=== PATIENT | female | born 1960 | race African-American/Black ===

== ENCOUNTER 2016-12-05 09:16 | Emergency (ER) | payer SELFPAY ==
[2016-12-05 09:40] VITALS: BP 133/78; PULSE 75; TEMP 98; BMI 26.5
--- NOTE | 2016-12-05 09:42 | PDOC ---
History of Present Illness - General Chief Complaint: Urinary Problem Stated Complaint: DISCOMFORT Time Seen by Provider: 12/05/16 09:31 History Source: Patient Exam Limitations: No Limitations - History of Present Illness Initial Comments: CHIEF COMPLAINT: 56 y/o afebrile female with no significant PMH c/o urinary frequency and abnormal vaginal discharge for the past 1 week. HISTORY OF PRESENT ILLNESS: The patient states she has had 1 sexual partner for the past 25 years and is not concerned for STDs. She states her discharge is greenish/brownish with foul odor. She tried using OTC monistat with no relief. She denies f/c, n/v/d, dysuria, hematuria, abd pain, back pain, vaginal itching. Vital signs on arrival are within normal limits. REVIEW OF SYSTEMS: GENERAL/CONSTITUTIONAL: No fever/chills. No weakness. No weight change. HEAD, EYES, EARS, NOSE AND THROAT: No change in vision. No ear pain or discharge. No sore throat. CARDIOVASCULAR: No chest pain or shortness of breath. RESPIRATORY: No cough, wheezing, or hemoptysis. GASTROINTESTINAL: No abd pain, nausea, vomiting, diarrhea. GENITOURINARY: +urinary frequency. No dysuria or hematuria. VAGINA: +foul smelling greenish discharge. MUSCULOSKELETAL: No joint or muscle swelling or pain. No neck or back pain. SKIN: No rash or easy bruising. NEUROLOGIC: No headache, vertigo, loss of consciousness, or loss of sensation. PHYSICAL EXAM: GENERAL: The patient is awake, alert, and fully oriented, in no acute distress. HEAD: Normal with no signs of trauma. ABDOMEN: Soft, non-distended, non-tender even to deep palpation, no hepatomegaly or splenomegaly, no masses. VAGINAL/SPECULUM: watery, yellow-brown, foul smelling discharge in the vaginal canal, consistent with BV. EXTREMITIES: Normal range of motion, no edema. NEUROLOGICAL: Normal speech, normal gait. CN II-XII grossly intact. PSYCH: Normal mood, normal affect. SKIN: Warm, dry, normal turgor, no rashes or lesions noted. Past History - Past Medical History Allergies/Adverse Reactions: Allergies Allergy/AdvReac Type Severity Reaction Status Date / Time No Known Allergies Allergy Verified 12/05/16 09:27 Home Medications: Ambulatory Orders Cephalexin Monohydrate [Keflex -] 500 mg PO BID #10 capsule 12/05/16 Metronidazole 0.75% Vag. Gel [Metrogel 0.75% *Vaginal Gel* -] 1 applic VG BID # 10 tube 12/05/16 Other medical history: PATIENT DENIES MEDICAL HISTORY - Psycho/Social/Smoking Cessation Hx Suicidal Ideation: No Smoking History: Never smoked Hx Alcohol Use: No Drug/Substance Use Hx: No *Physical Exam - Vital Signs Last Vital Signs Temp Pulse Resp BP Pulse Ox 98.0 F 75 18 133/78 96 12/05/16 09:24 12/05/16 09:24 12/05/16 09:24 12/05/16 09:24 12/05/16 09:24 Medical Decision Making - Medical Decision Making A/P: 56 y/o female with urinary frequency and abnormal vaginal discharge. Plan is as follows: 1. UA/culture 2. vaginal cultures UA with 3+ leuks. Will treat sxs with keflex. Vaginal exam reveals most likely BV. Will send rx for metro gel. Will also send vaginal culture and GC/chlamydia. Pt instructed no to drink alcohol while taking metro gel, follow up with her PCP within 1 week and return to the ER with any worsening or concerning symptoms. The patient verbalizes understanding of all instructions, has no further questions and is awaiting discharge. *DC/Admit/Observation/Transfer Diagnosis at time of Disposition: Bacterial vaginosis UTI (urinary tract infection) Qualifiers: Urinary tract infection type: acute cystitis Hematuria presence: without hematuria Qualified Code(s): N30.00 - Acute cystitis without hematuria - Discharge Dispostion Disposition: HOME Condition at time of disposition: Good - Prescriptions Prescriptions: Cephalexin Monohydrate [Keflex -] 500 mg PO BID #10 capsule Metronidazole 0.75% Vag. Gel [Metrogel 0.75% *Vaginal Gel* -] 1 applic VG BID # 10 tube - Patient Instructions Printed Discharge Instructions: DI for Urinary Tract Infection (UTI), DI for Bacterial Vaginosis Additional Instructions: Discharge Instructions: -Take medications as prescribed -Do not drink alcohol while using the vaginal applicators -Follow up with your doctor within 1 week -Return to the ER with any worsening or concerning symptoms
[2016-12-05 09:55] LABS: URINE APPEARANCE CLEAR; URINE BILIRUBIN NEGATIVE (NEGATIVE); URINE BLOOD NEGATIVE (NEGATIVE); URINE COLOR STRAW; URINE GLUCOSE (UA) NEGATIVE (NEGATIVE); URINE KETONE NEGATIVE (NEGATIVE); URINE NITRITE NEGATIVE (NEGATIVE); URINE PROTEIN NEGATIVE (NEGATIVE); URINE UROBILINOGEN NEGATIVE E.U./dl (0.2-1.0)
[2016-12-05 09:57] LABS: URINE LEUK ESTERASE 3+ (NEGATIVE)
[2016-12-05 10:01] LABS: URINE RBC 2 /hpf (0-3); URINE WBC 9 /hpf (3-5)
== END 2016-12-05 10:24 | disposition home or self-care (01) ==
LOC: JERFT 09:16 → JER 09:16 → JERFT 10:24
DX: N76.0 Acute vaginitis (principal); B96.89 Other specified bacterial agents as the cause of diseases classified elsewhere; N30.00 Acute cystitis without hematuria
CPT/HCPCS: 36415; 81003; 81015; 87070; 87077; 87086; 87205; 87491; 87591; 99281-25

== ENCOUNTER 2018-01-23 10:33 | Emergency (ER) | payer SELFPAY ==
[2018-01-23 10:45] VITALS: BP 108/64; PULSE 64; TEMP 98; BMI 30.2
--- NOTE | 2018-01-23 12:11 | PDOC ---
History of Present Illness - General Chief Complaint: Vaginal Sxs Stated Complaint: SICK Time Seen by Provider: 01/23/18 11:49 History Source: Patient Exam Limitations: No Limitations - History of Present Illness Travel History: No Initial Comments: 01/23/18 12:06 57 yr female with c/o of vaginal discharge and urinary urgency for one week. Pt denies abd pain or bleeding. Pt had same symptoms last year. Past History - Past Medical History Allergies/Adverse Reactions: Allergies Allergy/AdvReac Type Severity Reaction Status Date / Time No Known Allergies Allergy Verified 01/23/18 10:43 Home Medications: Ambulatory Orders metroNIDAZOLE 0.75% VAG. GEL [Metrogel 0.75% *Vaginal Gel* -] 1 applic VG HS #5 tube 01/23/18 COPD: No - Suicide/Smoking/Psychosocial Hx Smoking History: Never smoked Have you smoked in the past 12 months: No Information on smoking cessation initiated: No Hx Alcohol Use: No Drug/Substance Use Hx: No Substance Use Type: None *Physical Exam - Vital Signs Last Vital Signs Temp Pulse Resp BP Pulse Ox 98.0 F 64 18 108/64 100 01/23/18 10:43 01/23/18 10:43 01/23/18 10:43 01/23/18 10:43 01/23/18 10:43 - Physical Exam General Appearance: Yes: Nourished, Appropriately Dressed HEENT: positive: EOMI, LILI Female Pelvic Exam: positive: normal external exam, discharge (thin watery brownish villatoro, green discharge , red vulva noted ). negative: CMT, adnexal tenderness Gastrointestinal/Abdominal: positive: Normal Bowel Sounds, Soft. 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 GEL [Metrogel 0.75% *Vaginal Gel* -] 1 applic VG HS #5 tube - Referrals Referrals: Judi Yang MD [Staff Physician] - - Patient Instructions Additional Instructions: follow with your furnace clerk or avoid soap in the vaginal area, just water to clean avoid sexual activity until symptoms have resolved use the medication as directed - Post Discharge Activity
[2018-01-23 12:21] LABS: HCG,QUALITATIVE URINE Negative
[2018-01-23 12:22] LABS: URINE APPEARANCE CLOUDY; URINE BILIRUBIN NEGATIVE (<2.0 mg/dL); URINE BLOOD 2+ (NEGATIVE); URINE COLOR LTYELLOW; URINE GLUCOSE (UA) NEGATIVE (NEGATIVE); URINE KETONE NEGATIVE (NEGATIVE); URINE NITRITE NEGATIVE (NEGATIVE); URINE PROTEIN NEGATIVE (NEGATIVE); URINE UROBILINOGEN NEGATIVE mg/dL (0.2-1.0)
[2018-01-23 12:32] LABS: URINE LEUK ESTERASE 3+ (NEGATIVE)
[2018-01-23 12:34] LABS: EPI CELLS MANY /HPF (FEW); URINE BACTERIA RARE /hpf (NONE SEEN); URINE MUCUS RARE
== END 2018-01-23 12:36 | disposition home or self-care (01) ==
LOC: JERFT 10:33
DX: N76.0 Acute vaginitis (principal); B96.89 Other specified bacterial agents as the cause of diseases classified elsewhere
CPT/HCPCS: 36415; 81003; 81015; 84703; 87070; 87086; 87205; 87491; 87591; 99281-25

== ENCOUNTER 2019-08-24 12:41 | Inpatient (IN) | payer OTHER ==
[2019-08-24] MEDS ORDERED: ACETAMINOPHEN 500 MG TABLET (FP) PO ONE (14:03)
--- NOTE | 2019-08-24 14:04 | PDOC ---
History of Present Illness - General Chief Complaint: Pain Stated Complaint: PERSONAL Time Seen by Provider: 08/24/19 13:44 Past History - Past Medical History Allergies/Adverse Reactions: Allergies Allergy/AdvReac Type Severity Reaction Status Date / Time No Known Allergies Allergy Verified 08/24/19 12:45 Home Medications: Ambulatory Orders NK [No Known Home Medication] 08/24/19 COPD: No - Psycho Social/Smoking Cessation Hx Smoking History: Never smoked Have you smoked in the past 12 months: No Information on smoking cessation initiated: No Hx Alcohol Use: No Drug/Substance Use Hx: No Substance Use Type: None *Physical Exam - Vital Signs Last Vital Signs Temp Pulse Resp BP Pulse Ox 98 F 88 18 134/78 98 08/24/19 12:42 08/24/19 12:42 08/24/19 12:42 08/24/19 12:42 08/24/19 12:42 ED Treatment Course - LABORATORY CBC & Chemistry Diagram: 08/24/19 14:10 08/24/19 14:10 Medical Decision Making - Medical Decision Making 08/24/19 14:23 HPI: 59yo F no PMH presents from home with 6 days NB watery diarrhea 3-4x/day and 4 days of circumferential mid-back pain wrapping around to upper abdomen, worse with movement, stabbing type, only slight twinges intermittently at rest, better with ibuprofen, causing her to move slower. Pt is eating but a little less due to decreased appetite. Pt is drinking lots of water. Endorses slight lightheadedness today, denies vertigo. Endorses feeling bloated x6 days. Endorses chills, denies fever. Denies new or bizarre foods, sick contacts, travel. Endorses amoxicillin course for tooth abscess, started on 08/13/19. Denies chance of ; no menopausal sx but no period x5mo. Denies trauma, fall, heavy lifting, fever, fatigue, headache, numbness/tingling, weakness, vision changes, shortness of breath, cough, chest pain, palpitations, leg swelling, blood in stool, constipation, nausea, vomiting, dysuria, hematuria, frequency/urgency, vaginal discharge, vaginal bleeding, pelvic pain, confusion. Hx 4 c/s, no other surgeries. Denies alcohol, smoking, drugs. PCP - Alessandro Dumas ROS: Constitutional: Positive for chills. Negative for fever, fatigue, diaphoresis. HENT: Negative for sore throat, rhinorrhea, congestion. Eyes: Negative for visual disturbance. Respiratory: Negative for shortness of breath, cough, and wheezing. Cardiovascular: Negative for chest pain, palpitations, and leg swelling. Gastrointestinal: Positive for upper abdominal pain and diarrhea. Negative for blood in stool, constipation, nausea, and vomiting. Genitourinary: Negative for dysuria, flank pain, and hematuria. Musculoskeletal: Positive for b/l back pain. Negative for myalgias, and neck pain. Skin: Negative for rash. Neurological: Positive for light-headedness. Negative for vertigo, syncope, weakness, numbness and headaches. Psychiatric/Behavioral: Negative for behavioral problems and confusion. PE: Gen: Alert, NAD, comfortable-appearing. HEENT: PERRL, EOMI, MMM, NCAT. No conjunctival pallor. Sclera are non-icteric. CV: Regular rate and rhythm. No murmurs, rubs, or gallops. PULM: No resp distress. CTAB, no wheezes, rales, or rhonchi. ABD: soft, ND, no rebound tenderness or guarding, no CVA tenderness. +mild TTP diffuse upper abdomen wrapping around to back. BACK: +ttp b/l back musculature diffusely wrapping around sides to abdomen. No TTP of c/t/l-spine. No step-offs or deformities. MSK: No bony deformities. 2+ pulses in all extremities. NEURO: AAOx3. PERRL. CN 2-12 intact. 5/5 strength in all extremities. Sensation to light touch intact in all extremities. EXTREMITIES: No cyanosis. No clubbing. No edema. No calf tenderness. PSYCH: Normal mood and thought pattern. SKIN: Warm and dry. Normal capillary refill. No rashes. No jaundice. MDM: 59yo F no PMH presents from home with 6 days NB watery diarrhea 3-4x/day and 4 days of circumferential mid-back pain wrapping around to upper abdomen, worse with movement, better with ibuprofen, causing her to move slower. Hemodynamically stable, afebrile, +mild TTP circumferentially around upper abdomen and mid/lower back, extending up b/l back musculature, sparing spine, neurologically intact. Most consistent with MSK pain and viral gastroenteritis. Also consider metabolic derangement, anemia, . No spine pain/tenderness or trauma or neuro deficit concerning for spine pathology. No vaginal or urinary sx or lower abdominal pain concerning for pathology. Lower concern for emergent GI pathology such as pancreatitis, colitis, diverticulitis - obtain labs; manage pain and reassess and consider imaging. -CBC,CMP,Mg,Phos,Lipase,UA/UC/Upreg -Pain management: Tylenol before Upreg (if neg, toradol and robaxin) -Pt orally hydrating sufficiently. No need for IVF at this time. -If pain remains after pain management or lab abnormalities, consider imaging for GI or renal pathology -Pending CBC, consider c diff -Dispo: pending w/u 08/24/19 15:22 Upreg negative - toradol and robaxin. 08/24/19 15:40 Labs reviewed. No concerning findings. Pain persists, remains tender. -CTAP w/IV contrast 08/24/19 18:54 CTAP: extensive diverticulosis with acute diverticulitis at junction of distal descending and proximal sigmoid colon w/o gross evidence of abscess. Questionable couple of tiny extraluminal air pockets. -Rianna Nair -NPO Admitted - signed out to Dr Abdullahi Discharge - Discharge Information Problems reviewed: Yes Clinical Impression/Diagnosis: Diverticulitis Condition: Stable - Admission Yes - Follow up/Referral Referrals: Alessandro Dumas MD [Primary Care Provider] - - Patient Discharge Instructions - Post Discharge Activity
[2019-08-24] MEDS ORDERED: ACETAMINOPHEN 325 MG TABLET (FP) ONE (14:17)
[2019-08-24 14:44] LABS: PH,URINE 5.5 (5.0-8.0); URINE APPEARANCE CLOUDY; URINE BILIRUBIN NEGATIVE (NEGATIVE); URINE COLOR YELLOW; URINE GLUCOSE (UA) NEGATIVE (NEGATIVE); URINE KETONE NEGATIVE (NEGATIVE); URINE LEUK ESTERASE NEGATIVE (NEGATIVE); URINE NITRITE NEGATIVE (NEGATIVE); URINE PROTEIN NEGATIVE (NEGATIVE); URINE UROBILINOGEN 0.2 mg/dL (0.2-1.0)
[2019-08-24 14:46] LABS: BASO % 0.9 % (0-2.0); EOS % 0.6 % (0-4.5); HEMOGLOBIN 11.6 GM/dL (10.7-15.3); LYMPH % 19.8 % (8-40); MCHC 34.1 g/dl (32.0-36.0); MEAN CELL VOLUME 87.9 fl (80-96); MEAN PLT VOLUME 8.7 fl (7.5-11.1); MONO % 7.3 % (3.8-10.2); NEUT % 71.4 % (42.8-82.8); PLATELET COUNT 398 K/MM3 (134-434); RBC 3.87 M/mm3 (3.60-5.2); RDW 13.6 % (11.6-15.6); WHITE BLOOD COUNT 8.8 K/mm3 (4.0-10.0)
[2019-08-24] MEDS ORDERED: METHOCARBAMOL 500 MG TABLET PO ONE (15:00)
[2019-08-24] MEDS ORDERED: KETOROLAC TROMETHAMINE 30 MG/1 ML VIAL IVPUSH ONE (15:00)
[2019-08-24] MEDS ORDERED: METHOCARBAMOL 500 MG TABLET ONE (15:04)
[2019-08-24] MEDS ORDERED: KETOROLAC TROMETHAMINE 30 MG/1 ML VIAL ONE (15:04)
[2019-08-24 15:20] LABS: ALBUMIN 3.6 g/dl (3.4-5.0); BILIRUBIN,TOTAL 0.6 mg/dL (0.2-1); BLOOD UREA NITROGEN 9.8 mg/dL (7-18); CALCIUM 9.4 mg/dL (8.5-10.1); CREATININE 0.7 mg/dL (0.55-1.3); PHOSPHOROUS 4.1 mg/dL (2.5-4.9); POTASSIUM 4.4 mmol/L (3.5-5.1); TOT PROT 7.6 g/dl (6.4-8.2)
[2019-08-24 15:49] LABS: LIPASE < 10 U/L (73-393); MAGNESIUM 2.5 mg/dL (1.8-2.4)
--- NOTE | 2019-08-24 15:51 | PDOC ---
Attending Attestation - Resident Resident Name: Taryn Onofre - ED Attending Attestation I have performed the following: I have examined & evaluated the patient, The case was reviewed & discussed with the resident, I agree w/resident's findings & plan - HPI HPI: 08/24/19 15:48 Healthy and high functioning 59-year-old female presents with diarrhea and abdominal pain. Patient was in her usual state of good health, had dental infection treated with amoxicillin course that was completed about 1 week ago, since then has had up to 6-7 episodes per day of nonbloody watery/loose diarrhea , initially painless and then accompanied starting 4 days ago by a generalized bandlike abdominal pain that is constant, worsening in severity. Patient saw her PCP, no reported work-up, presents now for persistent symptoms. No history of GI infections, never had endoscopy or colonoscopy, no recent travel or sick contacts. No nausea or vomiting. No chills or fever. - Physicial Exam PE: 08/24/19 15:49 Vital signs normal Seated comfortably in the chair in no acute distress No jaundice or pallor, moist mucosa Heart is regular, lungs are clear Abdomen is soft/nondistended. Diffusely tender greatest in the lower quadrants bilaterally with guarding, no rebound. No CVA tenderness. - Medical Decision Making 08/24/19 15:49 Patient is a 59-year-old female with no sniffing past medical history who presents with abdominal pain and diarrhea in the setting of amoxicillin course, localizing findings on abdominal examination. Presentation could be consistent with colitis ( consider C. difficile on differential given recent antibiotics), possible diverticulitis. 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 Labs, urinalysis IV fluids, pain control CT of the abdomen and pelvis Disposition accordingly
[2019-08-24] MEDS ORDERED: SODIUM CHLORIDE 0.9% 500 ML INFUS.BAG IV ONE (18:48)
--- NOTE | 2019-08-24 21:09 | HP ---
Admitting History and Physical - Primary Care Physician PCP: Alexis Abdullahi - Admission History of Present Illness: Healthy and high functioning 59-year-old female presents with diarrhea and abdominal pain. Patient was in her usual state of good health, had dental infection treated with amoxicillin course that was completed about 1 week ago, since then has had up to 6-7 episodes per day of nonbloody watery/loose diarrhea , initially painless and then accompanied starting 4 days ago by a generalized bandlike abdominal pain that is constant, worsening in severity. Patient saw her PCP, no reported work-up, presents now for persistent symptoms. No history of GI infections, never had endoscopy or colonoscopy, no recent travel or sick contacts. No nausea or vomiting. No chills or fever. - Smoking History Smoking history: Never smoked Have you smoked in the past 12 months: No - Alcohol/Substance Use Hx Alcohol Use: No Home Medications - Allergies Allergies/Adverse Reactions: Allergies Allergy/AdvReac Type Severity Reaction Status Date / Time No Known Allergies Allergy Verified 08/24/19 12:45 - Home Medications Home Medications: Ambulatory Orders NK [No Known Home Medication] 08/24/19 Review of Systems - Review of Systems Gastrointestinal: reports: Abdominal Pain, Diarrhea Physical Examination Vital Signs: Vital Signs Temperature 98.2 F 08/24/19 19:19 Pulse Rate 69 08/24/19 19:19 Respiratory Rate 15 08/24/19 19:19 Blood Pressure 110/68 08/24/19 19:19 O2 Sat by Pulse Oximetry (%) 100 08/24/19 19:19 Constitutional: Yes: Calm HENT: Yes: Atraumatic Neck: Yes: Supple Cardiovascular: Yes: Regular Rate and Rhythm Respiratory: Yes: CTA Bilaterally Gastrointestinal: Yes: Normal Bowel Sounds Extremities: Yes: WNL Edema: No Peripheral Pulses WNL: Yes Neurological: Yes: Alert, Oriented Labs: CBC, BMP 08/24/19 14:10 08/24/19 14:10 Imaging - Results Cat Scan: Report Reviewed Problem List - Problems (1) Diverticulitis Assessment/Plan: npo ivf iv abx gi/surgery and id consult Code(s): K57.92 - DVTRCLI OF INTEST, PART UNSP, W/O PERF OR ABSCESS W/O BLEED Assessment/Plan Laboratory Tests 08/24/19 08/24/19 08/24/19 14:10 14:10 14:10 WBC 8.8 RBC 3.87 Hgb 11.6 Hct 34.0 MCV 87.9 MCH 30.0 MCHC 34.1 RDW 13.6 Plt Count 398 MPV 8.7 Absolute Neuts (auto) 6.3 Neutrophils % 71.4 Lymphocytes % 19.8 Monocytes % 7.3 Eosinophils % 0.6 Basophils % 0.9 Nucleated RBC % 0 Sodium 138 Potassium 4.4 Chloride 104 Carbon Dioxide 28 Anion Gap 6 L BUN 9.8 Creatinine 0.7 Est GFR (CKD-EPI)AfAm 111.47 Est GFR (CKD-EPI)NonAf 96.18 Random Glucose 78 Calcium 9.4 Phosphorus 4.1 Magnesium 2.5 H Total Bilirubin 0.6 AST 24 ALT 21 Alkaline Phosphatase 83 Total Protein 7.6 Albumin 3.6 Lipase < 10 L Urine Color Urine Appearance Urine pH Ur Specific [place] Urine Protein Urine Glucose (UA) Urine Ketones Urine Blood Urine Nitrite Urine Bilirubin Urine Urobilinogen Ur Leukocyte Esterase Urine HCG, Qual 08/24/19 08/24/19 14:15 14:15 WBC RBC Hgb Hct MCV MCH MCHC RDW Plt Count MPV Absolute Neuts (auto) Neutrophils % Lymphocytes % Monocytes % Eosinophils % Basophils % Nucleated RBC % Sodium Potassium Chloride Carbon Dioxide Anion Gap BUN Creatinine Est GFR (CKD-EPI)AfAm Est GFR (CKD-EPI)NonAf Random Glucose Calcium Phosphorus Magnesium Total Bilirubin AST ALT Alkaline Phosphatase Total Protein Albumin Lipase Urine Color Yellow Urine Appearance Cloudy Urine pH 5.5 Ur Specific [place] 1.011 Urine Protein Negative Urine Glucose (UA) Negative Urine Ketones Negative Urine Blood Negative Urine Nitrite Negative Urine Bilirubin Negative Urine Urobilinogen 0.2 Ur Leukocyte Esterase Negative Urine HCG, Qual Negative Active Medications Generic Name Dose Route Start Last Admin Trade Name Freq PRN Reason Stop Dose Admin Sodium Chloride 1,000 mls @ 100 mls/hr 08/24/19 21:15 08/25/19 08:21 Normal Saline - IV 100 mls/hr ASDIR CHARLY Administration Morphine Sulfate 2 mg 08/24/19 21:12 Morphine Sulfate IVPUSH Q4H PRN PAIN LEVEL 4 - 6
[2019-08-24] MEDS ORDERED: MORPHINE SULFATE 2 MG/ML VIAL IVPUSH PRN (21:12)
[2019-08-24] MEDS: SODIUM CHLORIDE 1,000 ML IV SCH (21:41)
[2019-08-24 23:20] VITALS: BMI 30.3
[2019-08-25] MEDS: SODIUM CHLORIDE 1,000 ML IV SCH ×2 (08:21→16:55)
[2019-08-25 09:01] LABS: BASO % 0.4 % (0-2.0); EOS % 1.1 % (0-4.5); HEMATOCRIT 30.6 % (32.4-45.2); HEMOGLOBIN 10.6 GM/dL (10.7-15.3); LYMPH % 23.4 % (8-40); MCH 30.6 pg (25.7-33.7); MCHC 34.7 g/dl (32.0-36.0); MONO % 8.7 % (3.8-10.2); NEUT % 66.4 % (42.8-82.8); PLATELET COUNT 324 K/MM3 (134-434); RBC 3.47 M/mm3 (3.60-5.2); WHITE BLOOD COUNT 5.8 K/mm3 (4.0-10.0)
[2019-08-25 09:16] LABS: BILIRUBIN,TOTAL 0.4 mg/dL (0.2-1); BLOOD UREA NITROGEN 12.2 mg/dL (7-18); CALCIUM 8.8 mg/dL (8.5-10.1); CREATININE 0.8 mg/dL (0.55-1.3); POTASSIUM 3.7 mmol/L (3.5-5.1); TOT PROT 6.2 g/dl (6.4-8.2)
--- NOTE | 2019-08-25 09:44 | PN ---
Progress Note (short form) - Note Progress Note: GI CONSULT DICTATED ACUTE DIVERTICULITIS CLEAR LIQUID DIET FOR DINNER SURGERY EVAL ABX IVF DIAGNOSTIC COLONOSCOPY IN 8 WEEKS SEE FULL CONSULT DICTATED.
--- NOTE | 2019-08-25 10:47 | CONSULT ---
- Consultation REQUESTING PROVIDER: CONSULT REQUEST: We have been asked to surgically evaluate this patient for abdominal pain and diarrhea. PCP:Alexis Abdullahi HISTORY OF PRESENT ILLNESS: Healthy and high functioning 59-year-old female presents with diarrhea and abdominal pain x 5 days. Patient was in her usual state of good health, had dental infection treated with amoxicillin and one day of clindimycin that was completed about 1 week ago. Since the completion of her antibiotic course she has had up to 6-7 episodes per day of non-bloody watery/ loose diarrhea/day, initially painless and then accompanied with pain starting 4 days ago by a generalized bandlike abdominal pain that is constant, worsening in severity. Patient saw her PCP who reported no work-up, presents now for persistent symptoms. No history of GI infections or similar occurrence, never had endoscopy or colonoscopy, no recent travel or sick contacts. Patient denies any CP,SOB, No nausea or vomiting, chills or fever. - Smoking History Smoking history: Never smoked Have you smoked in the past 12 months: No - Alcohol/Substance Use Hx Alcohol Use: No Home Medications - Allergies Allergies/Adverse Reactions: Allergies Allergy/AdvReac Type Severity Reaction Status Date / Time No Known Allergies Allergy Verified 08/24/19 12:45 - Home Medications Home Medications: Ambulatory Orders NK [No Known Home Medication] 08/24/19 Review of Systems - Review of Systems Gastrointestinal: reports: Abdominal Pain, Diarrhea Physical Examination Constitutional: A&Ox3, NAD HENT: NC/AT Respiratory: unlabored resp on RA Gastrointestinal: soft, ND with focal TTP over LLQ, Normal Bowel Sounds, no rashes/lesion or evidence of palpable masses. normoactive bowel sounds. Extremities: moving all extremities without limitation Edema: No Neurological: Yes: Alert, Oriented Labs: Vital Signs Temp 97.8 F 08/25/19 07:00 Pulse 72 08/25/19 07:00 Resp 18 08/25/19 07:00 BP 125/78 08/25/19 07:00 Pulse Ox 100 08/24/19 22:53 Intake & Output 08/24/19 08/24/19 08/25/19 11:59 23:59 11:59 Intake Total 50 700 Balance 50 700 Weight 166 lb Intake: IV 700 Normal Saline - 1,000 ml 700 @ 100 mls/hr IV ASDIR CHARLY Rx#:[id number] Oral 50 0 Other: Voiding Method Toilet # Unmeasured Voids Void 2 Bowel Movement No Body Mass Index (BMI) 30.3 Weight Measurement Method Standing Scale CBC, BMP 08/25/19 07:43 08/25/19 06:10 Abnormal Lab Results 08/24/19 08/24/19 08/25/19 14:10 14:10 06:10 RBC Hgb Hct Chloride 108 H Anion Gap 6 L 7 L Random Glucose 70 L Magnesium 2.5 H AST 9 L Total Protein 6.2 L Albumin 3.0 L Lipase < 10 L 08/25/19 07:43 RBC 3.47 L Hgb 10.6 L Hct 30.6 L Chloride Anion Gap Random Glucose Magnesium AST Total Protein Albumin Lipase Imaging CT abdomen/pelvis with contrast: Extensive diverticulosis coli with acute diverticulitis at junction of distal descending and proximal sigmoid colon without gross evidence of abscess. question of s few extraluminal air pockets present. Problem List - Problems (1) Diverticulitis Assessment/Plan: Diverticulitis with questionable micropeforation in afebrile patient with no evidence of an acute abdomen, and no white count. -Continue NPO, NGT PRN if patient begins vomiting/nausea -IFV -IV ABX per ID -OOb as tolerated -pain control -trend labs -RPT Abd/Pelvis CT while in house -surgery to follow -f/u out patient colonoscopy Evaluation and plan discussed with Dr Cunha Code(s): K57.92 - DVTRCLI OF INTEST, PART UNSP, W/O PERF OR ABSCESS W/O BLEED
--- NOTE | 2019-08-25 13:53 | CONS ---
GASTROINTESTINAL CONSULTATION DATE OF CONSULTATION: DATE OF DICTATION: 08/25/2019 HISTORY OF PRESENT ILLNESS: Patient is a 59-year-old female with no significant past medical who presented to the hospital with bloating and abdominal pain. Apparently, she had seen her primary medical doctor over the past week a couple of times for persistent symptoms. She had a dental infection, which was treated with amoxicillin and she completed the course a week ago. Prior to that, she had some episodes of diarrhea, which now have resolved. She denies constipation, but does admit to abdominal bloating and left lower quadrant abdominal pain, which gradually worsened over the past couple of days. She also admits to chills without fever. No nausea. No vomiting. She has never had diverticulitis in the past. She has also never had a colonoscopy in the past. PAST MEDICAL AND SURGICAL HISTORY: As listed in the HPI. ALLERGIES: No known drug allergies. HOME MEDICATIONS: None. SOCIAL HISTORY: Does not smoke, drink or use drugs. Does have 4 children. FAMILY HISTORY: No history of GI or gynecological malignancy. PHYSICAL EXAMINATION: Vital Signs: Temperature 98, pulse 76, blood pressure 112/87, pulse oximetry 100% on room air, respiratory rate 18. General: In no acute distress. HEENT: Anicteric sclera. Cardiovascular: S1, S2. Regular rate and rhythm. Lungs: Bilaterally clear to auscultation. Abdomen: Soft and tender without rebound in the left lower quadrant. Normal bowel sounds are present. Extremities: No edema. LABORATORIES: White blood cell count 5.8, hemoglobin and hematocrit 10 over 30, platelet count 324. INR was not done on this admission. Sodium 141, potassium 3.7, BUN over creatinine 12 over 0.8, glucose 70. Total bilirubin 0.4, AST 9, ALT 17 , alkaline phosphatase 73, amylase and lipase within normal limits. Urine is negative. IMAGING: She had a CT scan of the abdomen and pelvis with contrast, which revealed extensive diverticulosis with acute diverticulitis at the junction of the distal descending and proximal sigmoid colon without gross evidence of an abscess. There is a questionable couple of tiny extraluminal air pockets are present and also small bilateral inguinal fat-containing hernia minimal on the left. IMPRESSION: Acute diverticulitis. Appears to be uncomplicated with no abscess formation. RECOMMENDATIONS: IV fluids. N.p.o. today. I will advance her to a clear liquid diet for dinner. Continue her on Levaquin and Flagyl therapy for 10 days. Follow up her C difficile culture. She will need a diagnostic colonoscopy to be done in 6 -8 weeks, once the acute process has resolved. Surgery evaluation. She will be followed by the GI service. DO SILVER QUEZADA/[id number] MTDD
--- NOTE | 2019-08-25 16:47 | PN ---
Progress Note, Physician - Current Medication List Current Medications: Active Medications Sodium Chloride (Normal Saline -) 1,000 mls @ 100 mls/hr IV ASDIR CHARLY Last Admin: 08/25/19 08:21 Dose: 100 mls/hr Morphine Sulfate (Morphine Sulfate) 2 mg IVPUSH Q4H PRN PRN Reason: PAIN LEVEL 4 - 6 - Objective Vital Signs: Vital Signs Temperature 97.8 F 08/25/19 14:00 Pulse Rate 72 08/25/19 14:00 Respiratory Rate 18 08/25/19 14:00 Blood Pressure 132/79 08/25/19 14:00 O2 Sat by Pulse Oximetry (%) 100 08/25/19 09:00 Constitutional: Yes: No Distress HENT: Yes: Atraumatic Neck: Yes: Supple Cardiovascular: Yes: Regular Rate and Rhythm Respiratory: Yes: CTA Bilaterally Gastrointestinal: Yes: Normal Bowel Sounds, Tenderness (improved) Extremities: Yes: WNL Neurological: Yes: Alert, Oriented Labs: CBC, BMP 08/25/19 07:43 08/25/19 06:10 Problem List - Problems (1) Diverticulitis Assessment/Plan: on clearv liquid diet ivf...will dc iv abx gi/surgery and id consult Code(s): K57.92 - DVTRCLI OF INTEST, PART UNSP, W/O PERF OR ABSCESS W/O BLEED
--- NOTE | 2019-08-25 19:02 | CON.ID ---
Consult Consult Specialty:: infectious diseases Referred by:: collette Malave Reason for Consultation:: abd pain,diverticulitis - History of Present Illness Chief Complaint: abd pain History of Present Illness: 59-year-old female presents with diarrhea and abdominal pain. Patient was in her usual state of good health, had dental infection treated with amoxicillin course that was completed about 1 week ago, since then has had up to 6-7 episodes per day of nonbloody watery/loose diarrhea, initially painless and then accompanied starting 4 days ago by a generalized bandlike abdominal pain that is constant, worsening in severity. Patient saw her PCP, pain continued came to the hospital was worked up and found to have diverticulitis denies any other symptoms - History Source History Provided By: Patient Limitations to Obtaining History: No Limitations - Past Medical History ...: No - Alcohol/Substance Use Hx Alcohol Use: No - Smoking History Smoking history: Never smoked Have you smoked in the past 12 months: No Home Medications - Allergies Allergies/Adverse Reactions: Allergies Allergy/AdvReac Type Severity Reaction Status Date / Time No Known Allergies Allergy Verified 08/24/19 12:45 - Home Medications Home Medications: Ambulatory Orders NK [No Known Home Medication] 08/24/19 Review of Systems - Review of Systems Constitutional: reports: No Symptoms Eyes: reports: No Symptoms HENT: reports: No Symptoms Neck: reports: No Symptoms Cardiovascular: reports: No Symptoms Respiratory: reports: No Symptoms Gastrointestinal: reports: Abdominal Pain, Diarrhea, Nausea Genitourinary: reports: No Symptoms Musculoskeletal: reports: No Symptoms Integumentary: reports: No Symptoms Neurological: reports: No Symptoms Endocrine: reports: No Symptoms Hematology/Lymphatic: reports: No Symptoms Physical Exam Vital Signs: Vital Signs Temperature 97.8 F 08/25/19 14:00 Pulse Rate 72 08/25/19 14:00 Respiratory Rate 18 08/25/19 14:00 Blood Pressure 132/79 08/25/19 14:00 O2 Sat by Pulse Oximetry (%) 100 08/25/19 09:00 Constitutional: Yes: Well Nourished, Calm, Mild Distress Eyes: Yes: Conjunctiva Clear HENT: Yes: Atraumatic, Normocephalic Neck: Yes: Supple, Trachea Midline Cardiovascular: Yes: Regular Rate and Rhythm Respiratory: Yes: Regular, CTA Bilaterally Gastrointestinal: Yes: Soft, Hypoactive Bowel Sounds, Tenderness Musculoskeletal: Yes: WNL Extremities: Yes: WNL Neurological: Yes: Alert, Oriented Psychiatric: Yes: Alert, Oriented Labs: CBC, BMP 08/25/19 07:43 08/25/19 06:10 Imaging - Results Cat Scan: Report Reviewed, Image Reviewed Assessment/Plan Problem List - Problems (1) Diverticulitis Code(s): K57.92 - DVTRCLI OF INTEST, PART UNSP, W/O PERF OR ABSCESS W/O BLEED plan will start patine on abx npo surgery hydration
[2019-08-25] MEDS ORDERED: PIPERACILLIN/TAZOBACTAM 3.375 GM VIAL IVPB ONE (21:19)
[2019-08-25] MEDS ORDERED: DEXTROSE 5%-WATER - 50 ML IVPB ONE (21:19)
[2019-08-25] MEDS: PIPERACILLIN/TAZOB 3.375 GM 3.375 GM in DEXTROSE 5%-WATER - 50 ML IVPB SCH (21:53)
[2019-08-26] MEDS ORDERED: PIPERACILLIN/TAZOBACTAM 3.375 GM VIAL IVPB ONE ×3 (03:09→16:51)
[2019-08-26] MEDS ORDERED: DEXTROSE 5%-WATER - 50 ML IVPB ONE ×3 (03:09→16:51)
[2019-08-26] MEDS: SODIUM CHLORIDE 1,000 ML IV SCH ×2 (03:36→16:37)
[2019-08-26] MEDS: PIPERACILLIN/TAZOB 3.375 GM 3.375 GM in DEXTROSE 5%-WATER - 50 ML IVPB SCH ×3 (03:37→17:08)
[2019-08-26] MEDS ORDERED: ACETAMINOPHEN 325 MG TABLET (FP) PO ONE (05:52)
--- NOTE | 2019-08-26 10:55 | PN ---
Progress Note (short form) - Note Progress Note: Pt without complaints of abd pain. She staes that her abd feels much better, she has less tenderness with movement and is having less diarrhea. Since last pm she has been tolerating clears. Vital Signs Period Temp Pulse Resp BP Sys/Fair Pulse Ox Last 24 Hr 97.7 F-98.7 F 60-76 18-18 112-132/69-87 100 GEN: A&0x3, NAD ABD: soft, non-distended, non-tender CBC, BMP 08/25/19 07:43 08/25/19 06:10 Microbiology 08/24/19 22:50 Stool Clostridioides difficile Antigen - Final, no pathogen detected 08/24/19 22:50 Stool Clostridioides difficile Toxin Assay - Final, no pathogen detected A/P: 59 yo female with diverticulitis, ?microperforation Pt appears to be clinically stable without any evidence of toxicity. Her abd exam remains benign, no fevers or leukocytosis. Recommend to progress slowly with her diet. If she develops a fever, increased abd pain/diarrhea would resume NPO IV abx Seen by GI and recommending follow-up colonscopy in 8 weeks D/w. Dr. Cunha
--- NOTE | 2019-08-26 10:58 | PN ---
Progress Note, Physician History of Present Illness: stable no new issues abd pain much better - Current Medication List Current Medications: Active Medications Sodium Chloride (Normal Saline -) 1,000 mls @ 100 mls/hr IV ASDIR CHARLY Last Admin: 08/26/19 03:36 Dose: 100 mls/hr Piperacillin Sod/Tazobactam (Sod 3.375 gm/ Dextrose) 50 mls @ 100 mls/hr IVPB Q8H-IV CHARLY; Protocol Last Admin: 08/26/19 09:15 Dose: 100 mls/hr Morphine Sulfate (Morphine Sulfate) 2 mg IVPUSH Q4H PRN PRN Reason: PAIN LEVEL 4 - 6 - Objective Vital Signs: Vital Signs Temperature 98.7 F 08/26/19 06:00 Pulse Rate 67 08/26/19 08:57 Respiratory Rate 18 08/26/19 08:57 Blood Pressure 127/69 08/26/19 08:57 O2 Sat by Pulse Oximetry (%) 100 08/25/19 21:00 Constitutional: Yes: No Distress, Calm Cardiovascular: Yes: S1, S2 Respiratory: Yes: Regular, CTA Bilaterally Gastrointestinal: Yes: Normal Bowel Sounds, Soft Musculoskeletal: Yes: WNL Extremities: Yes: WNL Neurological: Yes: Alert, Oriented Psychiatric: Yes: Alert, Oriented Labs: CBC, BMP 08/25/19 07:43 08/25/19 06:10 Assessment/Plan Problem List - Problems (1) Diverticulitis Code(s): K57.92 - DVTRCLI OF INTEST, PART UNSP, W/O PERF OR ABSCESS W/O BLEED plan abx monitor see how patient tolerates liquids rest as per the team
--- NOTE | 2019-08-26 11:25 | PN.GI ---
GI Progress Note Subjective: No acute events Abdominal pain improved - Objective Vital Signs: Vital Signs Temperature 98.7 F 08/26/19 06:00 Pulse Rate 67 08/26/19 08:57 Respiratory Rate 18 08/26/19 08:57 Blood Pressure 127/69 08/26/19 08:57 O2 Sat by Pulse Oximetry (%) 100 08/25/19 21:00 Constitutional: Calm Eyes: No: Sclera Icterus Cardiovascular: Yes: Regular Rate and Rhythm Respiratory: Yes: CTA Bilaterally Gastrointestinal Inspection: No: Distention ...Auscultate: Yes: Normoactive Bowel Sounds ...Palpate: Yes: Tenderness (Mild TTP LLQ.). No: Guarding, Hepatomegaly, Splenomegaly, Tenderness, Rebound ...Percussion: No: Tympanitic Edema: No (No LE edema) Neurological: Yes: Alert Labs: No repeat labs today.
--- NOTE | 2019-08-26 18:27 | PN ---
Progress Note, Physician History of Present Illness: doing well - Current Medication List Current Medications: Active Medications Sodium Chloride (Normal Saline -) 1,000 mls @ 100 mls/hr IV ASDIR CHARLY Last Admin: 08/26/19 16:37 Dose: 100 mls/hr Piperacillin Sod/Tazobactam (Sod 3.375 gm/ Dextrose) 50 mls @ 100 mls/hr IVPB Q8H-IV CHARLY; Protocol Last Admin: 08/26/19 17:08 Dose: 100 mls/hr Morphine Sulfate (Morphine Sulfate) 2 mg IVPUSH Q4H PRN PRN Reason: PAIN LEVEL 4 - 6 - Objective Vital Signs: Vital Signs Temperature 98.3 F 08/26/19 14:00 Pulse Rate 66 08/26/19 14:00 Respiratory Rate 18 08/26/19 14:00 Blood Pressure 112/69 08/26/19 14:00 O2 Sat by Pulse Oximetry (%) 100 08/26/19 09:00 Constitutional: Yes: No Distress HENT: Yes: Atraumatic Neck: Yes: Supple Cardiovascular: Yes: Regular Rate and Rhythm Respiratory: Yes: CTA Bilaterally Gastrointestinal: Yes: Normal Bowel Sounds Extremities: Yes: WNL Edema: No Neurological: Yes: Alert, Oriented Labs: CBC, BMP 08/25/19 07:43 08/25/19 06:10 Problem List - Problems (1) Diverticulitis Assessment/Plan: on clearv liquid diet ivf...will dc iv abx gi/surgery and id consult Code(s): K57.92 - DVTRCLI OF INTEST, PART UNSP, W/O PERF OR ABSCESS W/O BLEED
[2019-08-27] MEDS ORDERED: DEXTROSE 5%-WATER - 50 ML IVPB ONE ×3 (01:04→17:25)
[2019-08-27] MEDS ORDERED: PIPERACILLIN/TAZOBACTAM 3.375 GM VIAL IVPB ONE ×3 (01:04→17:25)
[2019-08-27] MEDS: PIPERACILLIN/TAZOB 3.375 GM 3.375 GM in DEXTROSE 5%-WATER - 50 ML IVPB SCH ×3 (01:46→17:26)
[2019-08-27] MEDS: SODIUM CHLORIDE 1,000 ML IV SCH (03:29)
[2019-08-27 08:35] LABS: BASO % 0.3 % (0-2.0); EOS % 1.7 % (0-4.5); HEMATOCRIT 31.8 % (32.4-45.2); HEMOGLOBIN 10.7 GM/dL (10.7-15.3); LYMPH % 38.6 % (8-40); MCH 29.8 pg (25.7-33.7); MCHC 33.5 g/dl (32.0-36.0); MEAN CELL VOLUME 88.9 fl (80-96); MEAN PLT VOLUME 7.8 fl (7.5-11.1); MONO % 9.5 % (3.8-10.2); NEUT % 49.9 % (42.8-82.8); PLATELET COUNT 367 K/MM3 (134-434); RBC 3.58 M/mm3 (3.60-5.2); RDW 13.5 % (11.6-15.6); WHITE BLOOD COUNT 3.6 K/mm3 (4.0-10.0)
[2019-08-27 08:57] LABS: BLOOD UREA NITROGEN 5.5 mg/dL (7-18); CREATININE 0.8 mg/dL (0.55-1.3); POTASSIUM 3.4 mmol/L (3.5-5.1)
--- NOTE | 2019-08-27 10:27 | PN ---
Progress Note (short form) - Note Progress Note: 59yo F h/o acute diverticulitis, pt seen and examined at bedside. Pt states that she is feeling much better and that her abd pain is resolved. Pt states she is ambulating well and tolerating clears. Pt denies fever, chills, n/v, cp , sob. Last Vital Signs Temp Pulse Resp BP Pulse Ox 97.9 F 66 18 139/82 100 08/27/19 10:00 08/27/19 10:00 08/27/19 10:00 08/27/19 10:00 08/27/19 08:13 CBC, BMP 08/27/19 07:57 08/27/19 07:57 PE: Gen: A&O x3 Resp; breathing comfortably Abd: soft, nontender, nondistended, Problem List - Problems (1) Diverticulitis Assessment/Plan: Plan -pt appears to be doing well and pain is resolved. No surgical interventions at this time. -pt should follow up with GI for outpatient colonoscopy Pt seen and examined with Dr. Cunha who agrees with plan Code(s): K57.92 - DVTRCLI OF INTEST, PART UNSP, W/O PERF OR ABSCESS W/O BLEED
--- NOTE | 2019-08-27 13:22 | PN ---
Progress Note, Physician History of Present Illness: stable no new issues - Current Medication List Current Medications: Active Medications Sodium Chloride (Normal Saline -) 1,000 mls @ 100 mls/hr IV ASDIR CHARLY Last Admin: 08/27/19 03:29 Dose: 100 mls/hr Piperacillin Sod/Tazobactam (Sod 3.375 gm/ Dextrose) 50 mls @ 100 mls/hr IVPB Q8H-IV CHARLY; Protocol Last Admin: 08/27/19 09:30 Dose: 100 mls/hr Morphine Sulfate (Morphine Sulfate) 2 mg IVPUSH Q4H PRN PRN Reason: PAIN LEVEL 4 - 6 - Objective Vital Signs: Vital Signs Temperature 97.9 F 08/27/19 10:00 Pulse Rate 66 08/27/19 10:00 Respiratory Rate 18 08/27/19 10:00 Blood Pressure 139/82 08/27/19 10:00 O2 Sat by Pulse Oximetry (%) 100 08/27/19 08:13 Constitutional: Yes: No Distress, Calm Cardiovascular: Yes: S1, S2 Respiratory: Yes: Regular, CTA Bilaterally Gastrointestinal: Yes: Normal Bowel Sounds, Soft Musculoskeletal: Yes: WNL Extremities: Yes: WNL Neurological: Yes: Alert, Oriented Psychiatric: Yes: Alert, Oriented Labs: CBC, BMP 08/27/19 07:57 08/27/19 07:57 Assessment/Plan Problem List - Problems (1) Diverticulitis Code(s): K57.92 - DVTRCLI OF INTEST, PART UNSP, W/O PERF OR ABSCESS W/O BLEED plan abx monitor
--- NOTE | 2019-08-27 18:51 | PN ---
Progress Note, Physician History of Present Illness: doing well - Current Medication List Current Medications: Active Medications Sodium Chloride (Normal Saline -) 1,000 mls @ 100 mls/hr IV ASDIR CHARLY Last Admin: 08/27/19 03:29 Dose: 100 mls/hr Piperacillin Sod/Tazobactam (Sod 3.375 gm/ Dextrose) 50 mls @ 100 mls/hr IVPB Q8H-IV CHARLY; Protocol Last Admin: 08/27/19 17:26 Dose: 100 mls/hr Morphine Sulfate (Morphine Sulfate) 2 mg IVPUSH Q4H PRN PRN Reason: PAIN LEVEL 4 - 6 - Objective Vital Signs: Vital Signs Temperature 98.8 F 08/27/19 14:00 Pulse Rate 66 08/27/19 14:00 Respiratory Rate 18 08/27/19 14:00 Blood Pressure 137/78 08/27/19 14:00 O2 Sat by Pulse Oximetry (%) 100 08/27/19 08:13 Constitutional: Yes: No Distress HENT: Yes: Atraumatic Neck: Yes: Supple Cardiovascular: Yes: Regular Rate and Rhythm Respiratory: Yes: CTA Bilaterally Gastrointestinal: Yes: Normal Bowel Sounds, Other (non tender) Extremities: Yes: WNL Edema: No Peripheral Pulses WNL: Yes Neurological: Yes: Alert, Oriented Labs: CBC, BMP 08/27/19 07:57 08/27/19 07:57 Problem List - Problems (1) Diverticulitis Assessment/Plan: on clear liquid diet ivf...will dc iv abx gi/surgery and id consult Code(s): K57.92 - DVTRCLI OF INTEST, PART UNSP, W/O PERF OR ABSCESS W/O BLEED
[2019-08-28] MEDS ORDERED: PIPERACILLIN/TAZOBACTAM 3.375 GM VIAL IVPB ONE ×2 (01:32→09:46)
[2019-08-28] MEDS ORDERED: DEXTROSE 5%-WATER - 50 ML IVPB ONE ×2 (01:32→09:47)
[2019-08-28] MEDS: PIPERACILLIN/TAZOB 3.375 GM 3.375 GM in DEXTROSE 5%-WATER - 50 ML IVPB SCH ×2 (01:42→10:26)
[2019-08-28] MEDS ORDERED: ACETAMINOPHEN 325 MG TABLET (FP) PO ONE (05:11)
[2019-08-28 09:22] LABS: BASO % 0.6 % (0-2.0); EOS % 1.9 % (0-4.5); HEMATOCRIT 30.5 % (32.4-45.2); HEMOGLOBIN 10.4 GM/dL (10.7-15.3); LYMPH % 43.6 % (8-40); MCH 30.2 pg (25.7-33.7); MCHC 34.2 g/dl (32.0-36.0); MEAN CELL VOLUME 88.3 fl (80-96); MEAN PLT VOLUME 7.7 fl (7.5-11.1); MONO % 10.1 % (3.8-10.2); NEUT % 43.8 % (42.8-82.8); PLATELET COUNT 367 K/MM3 (134-434); RBC 3.45 M/mm3 (3.60-5.2); RDW 13.1 % (11.6-15.6); WHITE BLOOD COUNT 3.5 K/mm3 (4.0-10.0)
--- NOTE | 2019-08-28 09:52 | PN.GI ---
GI Progress Note Subjective: Sitting in solarium with sister Tolerated breakfast Some nausea, no abdominal pain - Objective Vital Signs: Vital Signs Temperature 97.6 F 08/27/19 20:00 Pulse Rate 78 08/28/19 05:11 Respiratory Rate 18 08/28/19 05:11 Blood Pressure 136/90 08/28/19 05:11 O2 Sat by Pulse Oximetry (%) 98 08/27/19 21:00 Constitutional: Calm Eyes: No: Sclera Icterus ...Auscultate: Yes: Normoactive Bowel Sounds ...Palpate: Yes: Soft. No: Tenderness Labs: Hepatic Panel Total Bilirubin 0.4 mg/dL (0.2-1) 08/25/19 06:10 AST 9 U/L (15-37) L 08/25/19 06:10 ALT 17 U/L (13-61) 08/25/19 06:10 Alkaline Phosphatase 73 U/L (45-117) 08/25/19 06:10 Albumin 3.0 g/dl (3.4-5.0) L 08/25/19 06:10 CBC, BMP 08/28/19 08:00 Laboratory Tests 08/27/19 08/28/19 07:57 08:00 C-Reactive Protein 2.7 H Pending Problem List - Problems (1) Diverticulitis Assessment/Plan: Clinically improved and tolerating diet: Evaluation of leukoppenia per PMD Total 10 days of Abx. ID following Follow-up in office in 2-3 weeks when patient ready for D/C Call as needed Code(s): K57.92 - DVTRCLI OF INTEST, PART UNSP, W/O PERF OR ABSCESS W/O BLEED
[2019-08-28 09:54] LABS: BLOOD UREA NITROGEN 4.3 mg/dL (7-18); CREATININE 0.8 mg/dL (0.55-1.3); POTASSIUM 3.6 mmol/L (3.5-5.1)
[2019-08-28 10:41] VITALS: BP 137/85; PULSE 65; TEMP 98
--- NOTE | 2019-08-28 12:16 | PN ---
Progress Note, Physician - Current Medication List Current Medications: Active Medications Piperacillin Sod/Tazobactam (Sod 3.375 gm/ Dextrose) 50 mls @ 100 mls/hr IVPB Q8H-IV CHARLY; Protocol Last Admin: 08/28/19 10:26 Dose: 100 mls/hr - Objective Vital Signs: Vital Signs Temperature 98.0 F 08/28/19 10:00 Pulse Rate 65 08/28/19 10:00 Respiratory Rate 18 08/28/19 10:00 Blood Pressure 137/85 08/28/19 10:00 O2 Sat by Pulse Oximetry (%) 98 08/27/19 21:00 Constitutional: Yes: No Distress HENT: Yes: Atraumatic Neck: Yes: Supple Cardiovascular: Yes: Regular Rate and Rhythm Respiratory: Yes: CTA Bilaterally Gastrointestinal: Yes: Normal Bowel Sounds Extremities: Yes: WNL Edema: No Peripheral Pulses WNL: Yes Neurological: Yes: Alert, Oriented Labs: CBC, BMP 08/28/19 08:00 08/28/19 08:00 Problem List - Problems (1) Diverticulitis Assessment/Plan: low residue diet ivf...will dc po abx for home dc after lunch if tolerating diet Code(s): K57.92 - DVTRCLI OF INTEST, PART UNSP, W/O PERF OR ABSCESS W/O BLEED
--- NOTE | 2019-08-29 13:55 | DS ---
Physical Examination Vital Signs: Vital Signs Temperature 98.0 F 08/28/19 10:00 Pulse Rate 65 08/28/19 10:00 Respiratory Rate 18 08/28/19 10:00 Blood Pressure 137/85 08/28/19 10:00 O2 Sat by Pulse Oximetry (%) 98 08/28/19 09:00 Labs: CBC, BMP 08/28/19 08:00 08/28/19 08:00 Discharge Summary Problems reviewed: Yes Reason For Visit: DIVERTICULITIS Condition: Stable - Instructions Diet, Activity, Other Instructions: low fiber diet fu pmd 2-3 days Referrals: Kaiden Stephen DO [Staff Physician] - Alessandro Dumas MD [Primary Care Provider] - Disposition: HOME - Home Medications Comprehensive Discharge Medication List: Ambulatory Orders Ciprofloxacin HCl [Cipro] 500 mg PO BID #14 tablet 08/27/19 Metronidazole 500 mg PO TID #21 tablet 08/27/19 [place] home
== END 2019-08-28 14:12 | disposition home or self-care (01) | DRG 244 ==
LOC: JER 12:41 → JERBED 18:57 → J5S 20:07
PROVIDERS: ADMIT Internal Medicine; ATTEND Internal Medicine
DX: K57.92 Diverticulitis of intestine, part unspecified, without perforation or abscess without bleeding (principal); K57.90 Diverticulosis of intestine, part unspecified, without perforation or abscess without bleeding; R14.0 Abdominal distension (gaseous); R19.7 Diarrhea, unspecified; M54.9 Dorsalgia, unspecified; R63.0 Anorexia; D72.819 Decreased white blood cell count, unspecified
CPT/HCPCS: 36415; 74177-TC; 80048; 80053; 81003; 83690; 83735; 84100; 84703; 85025; 86140; 87086; 87324; 87449; 99283-25; J7030; Q9967